=== PATIENT | female | born 1960 | race African-American/Black ===

== ENCOUNTER → 2020-01-26 10:26 | Outpatient (CLI) | payer BC, SELFPAY ==
--- NOTE | ~2020-01-26 | MR_ITS ---
EXAMINATION: MR knee RT wo con DATE: 01/26/2020 11:14 INDICATION: Chronic right knee pain TECHNIQUE: Magnetic resonance imaging (MRI) of the right knee was performed without intravenous contr ast. Sequences included coronal PD-weighted FSE, coronal PD-weighted FS FSE, sagittal T2-weighted FS E, sagittal PD-weighted FS FSE and axial PD weighted fat saturated FSE. COMPARISON: None. FINDINGS: Medial compartment: Complex tear at the posterior horn and posterior body of the medial meniscus with both a radial and l ongitudinal component. Partial-thickness cartilage loss with relatively smooth chondral surface along the medial tibial plateau and with chondral surface regularity and deeper fissuring along the weight bearing medial femoral condyle. There is a small central subchondral osteophyte at the central aspect of the posterior weightbearing medial femoral condyle. Small marginal osteophytes are present. Lateral compartment: There is lateral extrusion of the lateral meniscal body. Complex tear with macerated appearance to th e lateral meniscal body and anterior horn. Extensive cartilage loss throughout the lateral compartmen t which is full/near full-thickness across much of the lateral tibial plateau and along portions of t he anterior to central weightbearing medial femoral condyle. At both regions there is underlying suba rticular edema. Patellofemoral compartment: Partial-thickness chondral ulceration at the patellar apical ridge and extending to the immediately a djacent medial and lateral patellar facets with there is also some deep fissuring. Tiny focus of suba rticular edema at the central aspect of the medial patellar facet. Deep chondral fissure involving gr eater than 50% the cartilage thickness but without degenerative subarticular changes at the superomed ial aspect of the lateral trochlea. Less severe partial thickness fissuring at the inferior aspect of the trochlear groove. Ligaments and tendons: Anterior and posterior cruciate ligaments are normal. The medial collateral ligament and fibular laurence ateral ligament complex are normal. The extensor mechanism is normal. The visualized medial and later al hamstring tendons as well as the iliotibial band are normal. Fluid: Moderate right knee joint effusion with mild synovitis at the margins of the suprapatellar pouch and along the posterior aspect of Hoffa's fat pad. Additional mild synovitis at a small Mayberry's cyst. No loose osteochondral bodies identified. Osseous/other: Bone alignment is normal. No fracture or pathologic marrow replacing process. Additional mild osteoar thritis at the proximal tibiofibular articulation with prominent intraosseous ganglion cyst at the an teromedial aspect of the head of the fibula. IMPRESSION: 1. Complex tears of the medial and lateral menisci, more severe with macerated appearance at the late ral meniscus. 2. Moderate lateral compartment predominant tricompartmental osteoarthritis with regions of high-grad e chondromalacia in all 3 compartments, least severe in the medial compartment. 3. Likely reactive moderate sized right knee joint effusion and small Mayberry's cyst. 4. Mild osteoarthritis at the proximal tibiofibular articulation with likely degenerative cystic oliva ge at the head of the fibula. Reviewed, dictated and finalized at location A. EE [employer] IMPRESSION: 1. Complex tears of the medial and lateral menisci, more severe with macerated appearance at the lateral meniscus. 2. Moderate lateral compartment predominant tricompartmental osteoarthritis wit h regions of high-grade chondromalacia in all 3 compartments, least severe in t he medial compartment. 3. Likely reactive moderate sized right knee joint effusion and small Mayberry's c yst. 4. Mild osteoa
== END ==
PROVIDERS: PCP Internal Medicine; Visit Provider Orthopaedic Surgery
DX: S83.271A Complex tear of lateral meniscus, current injury, right knee, initial encounter (principal); S83.231A Complex tear of medial meniscus, current injury, right knee, initial encounter; X58.XXXA Exposure to other specified factors, initial encounter; M17.11 Unilateral primary osteoarthritis, right knee
CPT/HCPCS: 73721

== ENCOUNTER 2020-04-16 16:23 | Outpatient (CLI) | payer BC, SELFPAY ==
[2020-04-21 15:57] LABS: Reference Lab Test Result Positive
== END 2020-04-16 16:24 | disposition home or self-care (01) ==
PROVIDERS: PCP Internal Medicine; Visit Provider Internal Medicine
DX: U07.1 COVID-19 (principal)
CPT/HCPCS: 36415; 86769

== ENCOUNTER 2020-05-13 09:24 | Outpatient (RCR) | payer BC, SELFPAY ==
[2020-05-13 09:27] VITALS: BMI 28.8
[2020-05-13 09:35] VITALS: BMI 28.8
== END 2020-08-11 23:59 | disposition home or self-care (01) ==
LOC: ANHDMC 09:24
PROVIDERS: PCP Internal Medicine; Visit Provider Internal Medicine
DX: M06.00 Rheumatoid arthritis without rheumatoid factor, unspecified site (principal); Z71.3 Dietary counseling and surveillance
CPT/HCPCS: 97802

== ENCOUNTER 2020-05-13 11:51 | Outpatient (CLI) | payer BC, SELFPAY ==
--- NOTE | ~2020-05-13 | XR_ITS ---
EXAMINATION: XR chest 2V DATE: 05/13/2020 13:29 INDICATION: Hypertension. Preop. TECHNIQUE: Frontal and lateral views of the chest were obtained. COMPARISON: None. FINDINGS: Calcified right lung nodules and calcified right hilar lymph nodes are consistent with old granulomatous disease. No pleural effusion or pneumothorax. The heart size is normal. There are sutur e anchors in the humeral heads bilaterally. Surgical clips in the right upper quadrant are likely fro m cholecystectomy. IMPRESSION: 1. No acute cardiopulmonary disease. Reviewed, dictated and finalized at location A.
[2020-05-13 13:42] LABS: Basophils Percent Auto 0.9 % (0.2-1.2); Eosinophils Absolute Auto 0.1 K/mm3 (0-0.3); Hematocrit 35.7 % (37.0-47.0); Hemoglobin 11.4 g/dL (12.0-15.0); Immature Granulocyte Absolute 0.01 K/mm3 (0.00-0.031); Immature Granulocyte Percent A 0.2 % (0-0.5); Lymphocytes Absolute Auto 2.16 K/mm3 (0.9-3.2); Lymphocytes Percent Auto 48.5 % (18.3-44.2); Mean Corpuscular HGB Conc 31.9 g/dl (32-36); Mean Corpuscular Hemoglobin 31.1 pg (26-34); Mean Corpuscular Volume 97.3 fl (80-100); Mean Platelet Volume 10.6 fl (7.4-10.4); Monocytes Absolute Auto 0.3 K/mm3 (0.1-0.6); Monocytes Percent Auto 6.5 % (2.6-8.5); Neutrophils Absolute Auto 1.9 K/mm3 (1.3-6.7); Neutrophils Percent Auto 41.9 % (45.5-73.1); Platelet Count Result 286 k/mm3 (150-375); Red Blood Count 3.67 M/mm3 (4.2-5.4); Red Cell Distribution Width 12.2 % (11.5-14.5); Urine Cotinine NEGATIVE; White Blood Count 4.5 K/mm3 (4.5-10.0)
[2020-05-13 13:43] LABS: Hemoglobin A1C 4.8 % (<5.7)
[2020-05-13 13:44] LABS: Albumin Level 4.1 g/dL (3.5-5.1); Blood Urea Nitrogen 12 mg/dL (7-17); Calcium 9.1 mg/dL (8.4-10.2); Carbon Dioxide 33 mmol/L (22-30); Chloride 102 mmol/L (98-107); Estimated Glomerular Filt Rate > 60; Glucose 95 mg/dL (65-105); Potassium 3.8 mmol/L (3.4-5.0); Sodium 140 mmol/L (137-145)
[2020-05-13 13:45] LABS: Prothrombin Time 12.5 Seconds (11.1-14.7)
[2020-05-13 13:46] LABS: Add Urine Microscopic? YES; Appearance Urine Clear (Clear); Bilirubin Urine Negative (Negative); Blood Urine Negative (Negative); Color Urine Yellow (Yellow); Glucose Urine UA Negative (Negative); Ketones Urine Negative (Negative); Leukocyte Esterase Ur 1+ LEU/UL (Negative); Mucus Urine Rare /lpf; Nitrate Urine Negative (Negative); Partial Thromboplastin Time 33.7 SECONDS (22.3-36.8); Protein Urine Negative (Negative); RBC Urine 0-2 /hpf (0-2); Specific Grav Ur 1.021 (1.001-1.035); Squamous Epithelial Cell Urine Rare /hpf (Few); Urobilinogen Urine Negative mg/dL (<2.0)
== END 2020-05-13 11:52 | disposition home or self-care (01) ==
PROVIDERS: PCP Internal Medicine; Visit Provider Orthopaedic Surgery
DX: Z01.818 Encounter for other preprocedural examination (principal); M17.0 Bilateral primary osteoarthritis of knee; M06.9 Rheumatoid arthritis, unspecified; R61 Generalized hyperhidrosis; I10 Essential (primary) hypertension; R91.1 Solitary pulmonary nodule
CPT/HCPCS: 36415; 71046; 80048; 80307; 81001; 82040; 83036; 85025; 85610; 85730; 86850; 86900; 86901; 87081; 87086; 87088

== ENCOUNTER 2020-05-17 00:03 | Outpatient (CLI) | payer BC, SELFPAY ==
[2020-05-17 17:13] LABS: SARS-CoV-2 RNA PCR Negative
== END 2020-05-17 00:04 | disposition home or self-care (01) ==
LOC: ANHCOVIDDT 00:03
PROVIDERS: PCP Internal Medicine; Visit Provider Orthopaedic Surgery
DX: Z01.812 Encounter for preprocedural laboratory examination (principal); Z11.59 Encounter for screening for other viral diseases
CPT/HCPCS: 87635; C9803; U0003

== ENCOUNTER 2020-05-19 11:16 | Inpatient (IN) | payer BC, SELFPAY ==
[2020-05-13 12:16] VITALS: BMI 28.8
[2020-05-13 12:49] VITALS: BP 120/66; PULSE 70; RESP 18; TEMP 36.9; O2SAT 99
[2020-05-19] VITALS (14 sets, daily range): BP systolic 124–157; BP diastolic 62–85; PULSE 63–94; RESP 10–20; TEMP 36–36.5; O2SAT 95–100
--- NOTE | ~2020-05-19 | XR_ITS ---
EXAMINATION: XR knee RT 2V DATE: 05/19/2020 10:08 INDICATION: Postoperative evaluation following right total knee arthroplasty. TECHNIQUE: Anteroposterior and lateral views of the right knee were obtained. COMPARISON: 01/12/2020 FINDINGS: Right total knee arthroplasty without patellar resurfacing appears well seated and in near anatomic a lignment. No fractures identified. Skin caity and expected postoperative subcutaneous and intra-a rticular gas. IMPRESSION: 1. Right total knee arthroplasty, negative for postoperative purposes. Reviewed, dictated and finalized at location A.
--- NOTE | 2020-05-19 06:54 | WPDANESEPPF ---
Anes - Initial Pre Proc Eval Procedure: Operation Date: 05/19/20 07:30 Proposed Procedures p Right Total Knee Arthroplasty - Ubaldo Curran MD Date/Time: 05/19/20 06:54 Surgeon: Ubaldo Curran MD Pre Op Diagnosis: OA Right Knee Patient Data Age: 59 Gender: F Height: 1.68 m Weight: 80.9 kg Last Vital Signs Temp 36.9 C 05/13/20 12:49 Pulse 70 05/13/20 12:49 Resp 18 05/13/20 12:49 BP 120/66 05/13/20 12:49 Pulse Ox 99 05/13/20 12:49 Allergies Allergy/AdvReac Type Severity Reaction Status Date / Time morphine Allergy Unknown Itching Verified 05/13/20 12:05 Home Medications Medication Instructions Recorded Confirmed Type chlorthalidone 25 mg tablet 25 mg PO DAILY 12/17/19 05/13/20 History zolpidem 10 mg tablet 10 mg PO .at bedtime #30 tablet 01/09/20 05/13/20 Rx chlorhexidine gluconate 4 % 1 applic TOPICAL ONCE #237 ml 04/08/20 05/13/20 Rx topical liquid meloxicam 7.5 mg tablet 7.5 mg PO BID #180 tablet 04/23/20 05/13/20 Rx quetiapine 25 mg tablet 25 mg PO .at bedtime #90 tablet 04/23/20 05/13/20 Rx amlodipine 5 mg PO HS 05/13/20 05/13/20 History gabapentin 600 mg PO QAM 05/13/20 05/13/20 History gabapentin [Neurontin] 1,500 mg PO HS 05/13/20 05/13/20 History lamotrigine 150 mg HS 05/13/20 05/13/20 History trazodone 150 mg PO HS 05/13/20 05/13/20 History nitrofurantoin 100 mg PO Q12H 7 Days #14 cap 05/17/20 Rx monohydrate/macrocrystals 100 mg capsule Patient hx anesthesia problems: none Family hx anesthesia problems: none PMFSH Past Medical History Medical History (Updated 05/19/20 @ 07:07 by Rommel Walker MD) Arthritis Bipolar 1 disorder Diverticulosis of intestine, part unspecified, without perforation or abscess with bleeding Essential hypertension Neuropathy Primary osteoarthritis of both knees Rheumatoid arthritis Social History Social History Smoking status: Never smoker Alcohol intake: never Spiritual care concerns: No Anes - Eval Final PreProcedure Day of Procedure 05/19/20 06:54 Patient weight: overweight Heart: regular rate and rhythm Lungs: clear to auscultation and normal air movement Airway: Mallampati scale class II Neurological: alert and oriented Last oral intake: >/= 8 hours ASA classification: III Emergent: no Anesthetic plan: proceed Anesthesia type and monitoring: general LMA Informed Consent: The patient's anesthetic plan and its attendant risks and benefits were discussed with the patient/family/POA. Questions were solicited and answers provided to the satisfaction of the patient/family/POA.
[2020-05-19] MEDS: LACTATED RINGERS 1,000 ML 30 ML IV CONT ×2 (07:00→09:47)
[2020-05-19] MEDS: TRANEXAMIC ACID 1,000MG/ISO100 1,000 MG/100 ML BAG 200 MG IVPB (07:15)
[2020-05-19] MEDS: IBUPROFEN IV 800 MG/200 ML 800 MG/200 ML BAG 400 MG IVPB (07:30)
--- NOTE | 2020-05-19 07:31 | WPDHPUPDATE1 ---
History and Physical Update Update Date/Time: 05/19/20 07:31 History and Physical has been reviewed, including an updated exam of the patient. There are NO changes in the patient's condition. Risks, benefits, and alternatives have been discussed and questions answered. Patient agrees to proceed with procedure.
--- NOTE | 2020-05-19 07:33 | WPDANESPNB ---
Anes - Peripheral Nerve Block Date/Time: 05/19/20 07:33 I have discussed with the patient/family/POA the placement of a peripheral nerve block for post-operative pain management, including associated risks, benefits, complications, and side effects. Alternative methods of post-operative analgesia were detailed. Questions were solicited and answers provided to the satisfaction of the patient/family/POA. Time-Out: A pre-procedural Time-Out was completed immediately before starting the procedure and confirmed: Patient Identification, Site, Procedure, Patient Position and the Availability of Requisite Equipment. Clinical Indications: Acute post-operative pain management requested by the operative surgeon. Nerve Block Insertion Note Anes-nerve block: femoral (20cc) right Patient position: supine Skin prep: chlorhexidine Needle: 22 gauge, stimulating, insulated echogenic needle. Needle length: 80 mm Technique: ultrasound (in plane) Injectate: bupivacaine 0.5% with epi 5 mcg/ml (20cc) Observations: tolerated well Complications: none Procedure start time:: 725 Procedure end time:: 730
[2020-05-19] MEDS: ceFAZolin 2 GM/D5W 50 ML 2 GM/50 ML BAG IVPB ×3 (07:36→23:33)
[2020-05-19] MEDS: TRANEXAMIC ACID 1,000 MG/10 ML AMPUL 1000 MG IV PUSH (09:13)
--- NOTE | 2020-05-19 09:42 | PM.OP ---
Procedure Note - Brief Procedure Note - Brief Date of procedure: 05/19/20 Pre-op diagnosis: OA Right Knee Post-op diagnosis: same Procedure performed: R TKA Anesthesia: GETA Surgeon: Ubaldo Curran MD Estimated blood loss (mL): 100 Complications: No immediate complications Condition: stable Disposition: PACU
--- NOTE | 2020-05-19 10:32 | SUR.PHASEI ---
1028- pt medicated for pain right knee of 6. family member updated via phone at 1025.
[2020-05-19] MEDS: ONDANSETRON INJ 4 MG/2 ML VIAL IV PUSH ×2 (12:05→16:07)
[2020-05-19] MEDS: MORPHINE SULFATE 4 MG/ML INJ IV PUSH ×3 (12:06→21:53)
[2020-05-19] MEDS: NITROFURANTOIN MONOHYD MACROCR 100 MG CAP PO ×2 (12:20→22:01)
[2020-05-19] MEDS: SODIUM CHLORIDE 0.9% IV 1,000 ML 125 ML IV CONT (12:22)
--- NOTE | 2020-05-19 14:48 | OP_ITS ---
DATE OF PROCEDURE: 05/19/2020 PREOPERATIVE DIAGNOSIS: Right knee degenerative joint disease. POSTOPERATIVE DIAGNOSIS: Right knee degenerative joint disease. PROCEDURE: Right total knee arthroplasty. ANESTHESIA: General. COMPLICATIONS: None. INDICATIONS: This is a 59-year-old female who has severe knee pain due to advanced degenerative arthrosis of the right knee. She tried nonoperative treatments such as injections and therapy and pain medication. She was not successful. She was indicated for right total knee arthroplasty. DESCRIPTION OF PROCEDURE: The patient was taken to the operating room in stable condition and placed in the supine position. General anesthesia was induced and then the right lower extremity was prepped and draped sterilely from the toes to the thigh. A midline skin incision was made. Medial parapatellar arthrotomy was made. There was arthrosis in all 3 compartments, minimal in the patellofemoral compartment. IM landon was placed in the femur. A distal femoral cut was made at 5 degrees of valgus with removing approximately 9 mm of bone from the high side. Next, the knee was sized to 62.5 and a cutting block was placed in alignment with Whitesides line and the transepicondylar axis and anterior, posterior, and chamfer cuts were made to the femur. IM landon was placed in the tibia and a transtibial cut was made removing approximately 10 mm of bone from the high side of the tibia. The tibia was planed to a smooth surface. A 67 tibial trial was placed in line with the 1/3rd medial aspect of the tibial tubercle. The femoral trial was placed and then ultimately a 12 poly trial was placed. The knee came out to full extension. There was good tracking in the patella without any tilt. There was good stability in varus valgus stress in both flexion and extension. There was no excessive rollback in flexion, and the cuts were all flushed with the trial implants. The trial was removed and then a Biomet tibial component measuring 67 and a femoral component measuring 62.5 were both press-fitted in the tibia and the femur respectively and then a 12 poly CR-type component was locked into place. The knee came out to full extension. There was good patellar tracking without any tilt. There was good stability in varus-valgus stress in both flexion extension, and there was no excessive rollback in flexion. The tourniquet was deflated. The bleeders were cauterized. Sterile Betadine and sterile water were used to wash the knee out for approximately 3 minutes. The fascial layer was approximated with #1 Vicryl suture, subcutaneous tissues with 2-0 Vicryl and the skin was approximated with caity. Wound was washed, placed sterile dressing. The patient was extubated, sent to recovery. Jorje I MT: Brandin
--- NOTE | 2020-05-19 15:25 | PM.IMCN ---
Assessment and Plan Assessment and plan (1) History of total knee arthroplasty: Code(s): Z96.659 - Presence of unspecified artificial knee joint Status: Acute Assessment and Plan: Patient underwent a right total knee arthroplasty today by Dr. Curran. Patient is 8/10 pain at this time to her right knee. Pain management per Dr. Curran. Discharge planning per Dr. Curran. Post-op care per Dr. Curran. DVT Prophylaxis per Dr. Curran Continue monitoring the patient's symptoms. (2) Essential hypertension: Code(s): I10 - Essential (primary) hypertension Status: Acute Assessment and Plan: Blood pressures with slightly elevated since her surgery at 150/60s. Will continue her home blood pressure medications in the morning, amlodipine and chlorthalidone. Continue monitoring. (3) Bipolar 1 disorder: Code(s): F31.9 - Bipolar disorder, unspecified Status: Acute Assessment and Plan: Continue her home medications, lamotrigine, quetiapine, trazodone, zolpidem (4) Neuropathy: Code(s): G62.9 - Polyneuropathy, unspecified Status: Acute Assessment and Plan: She reports having neuropathy but is located to her right hip which she states is from a pinched sciatic nerve. Will continue her gabapentin for this. She is not having back pain at this time. (5) Rheumatoid arthritis: Code(s): M06.9 - Rheumatoid arthritis, unspecified Status: Acute Assessment and Plan: States she does not have Rh factor but all of her other symptoms are associated with rheumatoid arthritis and she was the middle of getting this further worked up with a specialist and her primary prior to COVID. Will have her follow-up with her primary care provider after discharge for further evaluation and continue her home meds. HPI Data of Consult Consult date: 05/19/20 Requesting Physician: Ubaldo Curran MD Primary Care Provider: Aris Solomon DO Consult Narrative Narrative: Susan Chiu is a 59 year old female with history of bipolar, hypertension, rheumatoid arthritis, who was admitted after having outpatient right total knee arthroplasty by Dr. Curran. The patient states for years she has had arthritis of her bilateral knees and she has been having cortisone injections without much relief recently. She states Dr. Curran ordered knee MRI recently which showed she has complex tears of the medial and lateral meniscus and more severe with macerated appearance of the lateral meniscus. She decided that she would rather have a total knee arthroplasty since she has had meniscus surgery in the past. The patient had increased pain with walking and intermittent swelling to her knees. Since her surgery she is in 8/10 pain to her right knee. She has increased pain with movement it was sitting up in the chair at this time. The patient states she was called couple days ago and told she has urinary tract infection was started on oral antibiotics. She is not with the name of these antibiotics but states she has been having symptoms of frequent urination and the feeling that she is not completely emptying her bladder when she urinates. I reviewed her urine culture which came back negative for a UTI and showed multiple organisms all less than 10,000. She denies any chest pain, shortness of breath, cough, fever, chills, nausea, vomiting, abdominal pain, leg swelling, calf pain, headache, lightheadedness, dizziness or any other symptoms at this time. Review of Systems Review of Systems: All systems reviewed & are unremarkable except as noted in HPI and below PMFSH Past Medical History Medical History (Updated 05/19/20 @ 16:07 by Lisa Vail PA-C) Art
[2020-05-19] MEDS: CELECOXIB 200 MG CAPSULE PO (16:06)
[2020-05-19 18:10] LABS: Add Urine Microscopic? YES; Appearance Urine Clear (Clear); Bilirubin Urine Negative (Negative); Blood Urine Negative (Negative); Color Urine Straw (Yellow); Glucose Urine UA Negative (Negative); Ketones Urine Negative (Negative); Leukocyte Esterase Ur Trace LEU/UL (Negative); Mucus Urine Rare /lpf; Nitrate Urine Negative (Negative); Protein Urine Negative (Negative); RBC Urine 0-2 /hpf (0-2); Specific Grav Ur 1.014 (1.001-1.035); Urobilinogen Urine Negative mg/dL (<2.0)
[2020-05-19] MEDS: DOCUSATE SODIUM 100 MG CAPSULE PO (21:59)
[2020-05-19] MEDS: GABAPENTIN 300 MG CAPSULE 1500 MG PO (21:59)
[2020-05-19] MEDS: FAMOTIDINE 20 MG TABLET PO (21:59)
[2020-05-19] MEDS: AMLODIPINE BESYLATE 5 MG TABLET PO (21:59)
[2020-05-19] MEDS: lamoTRIgine 100 MG TABLET PO (22:00)
[2020-05-19] MEDS: lamoTRIgine 25 MG TABLET 50 MG PO (22:00)
[2020-05-19] MEDS: QUEtiapine FUMARATE 25 MG TABLET PO (22:01)
[2020-05-19] MEDS: TRAZODONE HCL 50 MG TABLET 150 MG PO (22:01)
[2020-05-20 01:01] VITALS: BP 108/58; PULSE 88; RESP 16; TEMP 36.9; O2SAT 95
[2020-05-20 05:01] VITALS: BP 98/60; PULSE 77; RESP 16; TEMP 36.9; O2SAT 96
[2020-05-20 06:23] LABS: Basophils Percent Auto 0.3 % (0.2-1.2); Eosinophils Percent Auto 0.2 % (0-4.4); Hematocrit 27.9 % (37.0-47.0); Immature Granulocyte Absolute 0.02 K/mm3 (0.00-0.031); Immature Granulocyte Percent A 0.3 % (0-0.5); Lymphocytes Absolute Auto 1.99 K/mm3 (0.9-3.2); Lymphocytes Percent Auto 30.2 % (18.3-44.2); Mean Corpuscular HGB Conc 32.3 g/dl (32-36); Mean Corpuscular Volume 96.2 fl (80-100); Mean Platelet Volume 10.3 fl (7.4-10.4); Monocytes Absolute Auto 0.9 K/mm3 (0.1-0.6); Monocytes Percent Auto 12.9 % (2.6-8.5); Neutrophils Absolute Auto 3.7 K/mm3 (1.3-6.7); Neutrophils Percent Auto 56.1 % (45.5-73.1); Platelet Count Result 213 k/mm3 (150-375); Red Cell Distribution Width 12.1 % (11.5-14.5); White Blood Count 6.6 K/mm3 (4.5-10.0)
[2020-05-20] MEDS: ceFAZolin 2 GM/D5W 50 ML 2 GM/50 ML BAG IVPB (06:33)
[2020-05-20 06:37] LABS: Blood Urea Nitrogen 10 mg/dL (7-17); Calcium 7.9 mg/dL (8.4-10.2); Carbon Dioxide 34 mmol/L (22-30); Chloride 102 mmol/L (98-107); Estimated CRCL calculation 82 ml/min; Estimated Glomerular Filt Rate > 60; Glucose 130 mg/dL (65-105); Potassium 3.3 mmol/L (3.4-5.0); Sodium 136 mmol/L (137-145)
[2020-05-20] MEDS: MORPHINE SULFATE 4 MG/ML INJ IV PUSH ×2 (07:04→08:48)
[2020-05-20 08:00] VITALS: PULSE 64; RESP 16; O2SAT 98
[2020-05-20] MEDS: NITROFURANTOIN MONOHYD MACROCR 100 MG CAP PO (08:26)
[2020-05-20] MEDS: lamoTRIgine 25 MG TABLET 50 MG PO (08:26)
[2020-05-20] MEDS: CHLORTHALIDONE 25 MG TABLET PO (08:26)
[2020-05-20] MEDS: lamoTRIgine 100 MG TABLET PO (08:26)
[2020-05-20] MEDS: DOCUSATE SODIUM 100 MG CAPSULE PO (08:27)
[2020-05-20] MEDS: CELECOXIB 200 MG CAPSULE PO ×2 (08:27→16:49)
[2020-05-20] MEDS: GABAPENTIN 300 MG CAPSULE 600 MG PO (08:27)
[2020-05-20] MEDS: FAMOTIDINE 20 MG TABLET PO (08:27)
[2020-05-20] MEDS: DIAZEPAM 5 MG TABLET PO (08:43)
[2020-05-20] MEDS: ONDANSETRON INJ 4 MG/2 ML VIAL IV PUSH (08:48)
--- NOTE | 2020-05-20 08:56 | PM.PNORT ---
Progress Note: A&P Assessment and Plan (1) History of total knee arthroplasty: Qualifiers: Laterality: right Qualified Code(s): Z96.651 - Presence of right artificial knee joint Code(s): Z96.659 - Presence of unspecified artificial knee joint Status: Acute Assessment and Plan: POD #1: RIGHT TKA Continue PT/OT. WBAT. Walker. Fall Risk. Continue DVT prophylaxis with Aspirin. SCDs. Incentive Spirometry. Continue pain control. Ice. No pillows under knee. Monitor dressing. Change prior to discharge. Dispo: Home with Home Health pending progress with PT/OT. Subjective Subjective Date/Time Seen: 05/20/20 08:56 Post Op day: 1 Principal diagnosis: Right Knee DJD Interval history: POD #1: RIght TKA Patient doing well. Some difficulty with pain control. Awaiting PT/OT. Requesting to be discharged home today if she progresses well with PT. Review of Systems Review of Systems: All systems reviewed & are unremarkable except as noted in HPI and below Constitutional: Constitutional: Denies chills, Denies difficulty sleeping, Denies fever(s) and Denies headache(s) ENT: Denies headache(s) Cardiovascular: Cardiovascular: Denies chest pain, Denies diaphoresis, Denies palpitations and Denies dyspnea Respiratory: Respiratory: Denies dyspnea Gastrointestinal: Gastrointestinal: Denies abdominal pain, Denies constipation, Denies nausea and Denies vomiting Comments: +flatus Genitourinary: Genitourinary: Reports nocturia and Denies dysuria Musculoskeletal: Musculoskeletal: Reports arthralgias (Right Knee ) and Reports joint swelling (Right Knee ) Neurologic: Denies headache(s) Endocrine: Endocrine: Denies palpitations Exam Const: General: comfortable and no acute distress Resp: Effort & Inspection: normal respiratory effort Cardio: Rate: regular rate Rhythm: regular rhythm GI: GI Palp: Yes Soft to palpation, No Tenderness to palpation present (GI) and No Guarding due to palpation present (GI) Skin: Wounds: wounds noted Other: Incision c/d/i. No surrounding redness/warmth. No hematoma. Mild ecchymosis. No wound dehiscence Neuro: Cognition (Neuro): normal cognition Other: NV intact aside from block. Moves toes. Sensation intact to light touch. +ankle dorsiflexion/plantarflexion. Extrem: Right upper extremity: normal to inspection, full ROM and normal capillary refill Left upper extremity: normal to inspection, full ROM and normal capillary refill Right lower extremity: normal to inspection, full ROM (ROM limited due to recent surgical intervention ), knee Details: tenderness (diffuse) and swelling (diffuse, mild ), lower leg (Negative Tomy's Sign ) Details: normal to inspection, ankle (+ankle dorsiflexion/plantarflexion. ) and foot Details: normal capillary refill, normal to inspection, vascular exam Details: dorsalis pedis pulse present and motor-sensory exam Details: two point discrimination normal and light-touch normal; no ecchymosis Left lower extremity: normal to inspection Psych: Mental Status: mental status grossly normal Objective Data Vital Signs Vital Signs: Vital Signs - 24 hr 05/19/20 09:47 05/19/20 10:00 05/19/20 10:12 Temperature 36.3 C L Pulse Rate 94 83 92 Respiratory Rate 10 L 10 L 11 L Blood Pressure 147/80 H 130/66 130/66 Pulse Oximetry 100 100 100 05/19/20 10:23 05/19/20 10:36 05/19/20 10:48 Temperature Pulse Rate 91 69 65 Respiratory Rate 10 L 10 L 10 L Blood Pressure 139/85 136/80 124/68 Pulse Oximetry 95 95 95 05/19/20 11:10 05/19/20 11:25 05/19/20 11:30 Temperature 36.4 C 36.5 C Pulse Rate 80 65 80 Respiratory Rate 18 18 18 Blood Pressure 157/71 H 133/77 Pulse Oximetry 97 100 97 05/19/20 12:01 05/19/20 12:55 05/19/20 16:55 Temperature 36.2 C L 36.0 C L 36.2 C L Pulse Rate 63 66 63 Respiratory Rate 20 18 18 Blood Pressure 154/67 H 151/70 H 147/73 H Pulse Oximetry 100 100 99 05/19/20 21:01 05/20/20 01:01 05/20/20 0
--- NOTE | 2020-05-20 09:44 | P.PNAN_ITS ---
Anes - Prog Note Post-Op Date/Time: 05/20/20 09:44 Cardiovascular status: normal Respiratory status: normal Airway patency: baseline Mental status: baseline Post-Op hydration status: normal Vital Signs: Last Vital Signs Temp 36.9 C 05/20/20 05:01 Pulse 77 05/20/20 05:01 Resp 16 05/20/20 05:01 BP 98/60 L 05/20/20 05:01 Pulse Ox 96 05/20/20 05:01 I/O: Intake & Output 05/19/20 05/20/20 05/20/20 23:59 07:59 15:59 Intake Total 1640 550 480 Output Total 400 Balance 1240 550 480 Laboratory Tests 05/20/20 06:14 05/20/20 06:14 05/19/20 05/20/20 05/20/20 17:54 06:14 06:14 WBC 6.6 RBC 2.90 L Hgb 9.0 L Hct 27.9 L MCV 96.2 MCH 31.0 MCHC 32.3 RDW 12.1 Plt Count 213 MPV 10.3 Immature Gran % (Auto) 0.3 Neut % (Auto) 56.1 Lymph % (Auto) 30.2 [place] % (Auto) 12.9 H Eos % (Auto) 0.2 Baso % (Auto) 0.3 Lymph # (Auto) 1.99 [place] # (Auto) 0.9 H Eos # (Auto) 0.0 Baso # (Auto) 0.0 Abs Immat Gran (auto) 0.02 Absolute Neuts (auto) 3.7 Absolute Nucleated RBC 0.0 Nucleated RBC % 0.0 Sodium 136 L Potassium 3.3 L Chloride 102 Carbon Dioxide 34 H BUN 10 Creatinine 0.70 Estim Creat Clear Calc 82 Estimated GFR > 60 Glucose 130 H Calcium 7.9 L Urine Color Straw Urine Appearance Clear Urine pH 6.0 Ur Specific [place] 1.014 Urine Protein Negative Urine Glucose (UA) Negative Urine Ketones Negative Ur Blood (Man) Negative Urine Nitrate Negative Urine Bilirubin Negative Urine Urobilinogen Negative Leukocyte Esterase Rfl Trace H Urine RBC 0-2 Urine WBC 4-6 H Urine Mucus Rare Post-procedural complaints: none Patient Feedback: Patient satisfied with anesthetic care.
[2020-05-20 10:00] VITALS: BP 116/60; PULSE 64; RESP 16; TEMP 36.4; O2SAT 98
[2020-05-20] MEDS: ASPIRIN 325 MG ENTERIC TABLET 650 MG PO (10:44)
[2020-05-20 14:00] VITALS: BP 102/61; PULSE 87; RESP 16; TEMP 36.4; O2SAT 98
--- NOTE | 2020-05-20 15:10 | PM.IMPN ---
Progress Note: A&P Assessment and Plan (1) History of total knee arthroplasty: Qualifiers: Laterality: right Qualified Code(s): Z96.651 - Presence of right artificial knee joint Code(s): Z96.659 - Presence of unspecified artificial knee joint Status: Acute Assessment and Plan: Patient underwent a right total knee arthroplasty today by Dr. Curran. Patient's pain is well controlled at this time. Pain management per Dr. Curran. Discharge planning per Dr. Curran. Post-op care per Dr. Curran. DVT Prophylaxis per Dr. Curran Continue monitoring the patient's symptoms. She is stable for discharge from a medical standpoint (2) Essential hypertension: Code(s): I10 - Essential (primary) hypertension Status: Acute Assessment and Plan: Blood pressures today have been stable at 100 to 110 systolic. Will continue her home blood pressure medications in the morning, amlodipine and chlorthalidone. Continue monitoring. (3) Bipolar 1 disorder: Code(s): F31.9 - Bipolar disorder, unspecified Status: Acute Assessment and Plan: Continue her home medications, lamotrigine, quetiapine, trazodone, zolpidem (4) Neuropathy: Code(s): G62.9 - Polyneuropathy, unspecified Status: Acute Assessment and Plan: She reports having neuropathy but is located to her right hip which she states is from a pinched sciatic nerve. Will continue her gabapentin for this. She is not having back pain at this time. (5) Rheumatoid arthritis: Code(s): M06.9 - Rheumatoid arthritis, unspecified Status: Acute Assessment and Plan: States she does not have Rh factor but all of her other symptoms are associated with rheumatoid arthritis and she was the middle of getting this further worked up with a specialist and her primary prior to COVID. Will have her follow-up with her primary care provider after discharge for further evaluation and continue her home meds. (6) Frequent urination: Code(s): R35.0 - Frequency of micturition Status: Acute Assessment and Plan: The patient stated that she had been having frequent urination prior to coming in for her surgery. Her urinalysis on 05/13/2020 showed 1+ leukocyte esterase and 10-15 wbc's. She states she was started on oral antibiotics as an outpatient at this time but cannot remember the name. Her urine culture showed multiple organisms which is most likely a contamination. I recheck her urinalysis yesterday and it still showed trace leukocytosis and WBC 4-6. She denies any urinary symptoms at this time. Will have her follow-up her primary care provider if she continues have symptoms and I will not give any antibiotics at this time. Time Spent With Patient Time with patient: 25 - 35 minutes Subjective Date/time seen: 05/20/20 15:10 Interval history: POD #1: RIght TKA Patient states she is doing well and walked down the tovar and stairs earlier without any issues. She is rated be discharged home today if possible. She denies any fevers, chills, chest pain, shortness of breath, cough, nausea, vomiting, abdominal pain, dysuria, frequent urination or any other symptoms at this time. Review of Systems Review of Systems: All systems reviewed & are unremarkable except as noted in HPI and below Exam Narrative: Exam Narrative: General: 59-year-old woman laying flat in bed sleeping. Easily arousable but falls back asleep after answering my questions. Appears comfortable and in no acute distress. Skin: No jaundice or cyanosis. Good skin turgor. Neck: Full range of motion. Supple. Respiratory: Lungs are clear to auscultation bilat
[2020-05-20] MEDS: POTASSIUM CHLORIDE 20 MEQ TABLET 40 MEQ PO (15:32)
--- NOTE | 2020-07-02 08:49 | PM.DS ---
DS: Admitting Diagnosis Admitting Diagnosis Admitting Diagnosis: Right TKA DS: Discharge Diagnosis Discharge Diagnosis (1) History of total knee arthroplasty: Qualifiers: Laterality: right Qualified Code(s): Z96.651 - Presence of right artificial knee joint Code(s): Z96.659 - Presence of unspecified artificial knee joint Status: Acute Assessment and Plan: POD #1: RIGHT TKA Continue PT/OT. WBAT. Walker. Fall Risk. Continue DVT prophylaxis with Aspirin. SCDs. Incentive Spirometry. Continue pain control. Ice. No pillows under knee. Monitor dressing. Change prior to discharge. Dispo: Home with Home Health pending progress with PT/OT. DS: Summary Hospital Course Reason for hospitalization: Right TKA Hospital Course: 60 year old female admitted s/p right TKA for postoperative medical management and pain control, PT/OT. Patient progressed well with PT/OT. Pain well controlled. Discharged home with home health. Status at Discharge Functional status at discharge: uses cane/walker Overall status at discharge: patient is progressing back to baseline Time Spent with Patient Time attestation: Total time spent providing and/or coordinating discharge services: Exam Const: General: comfortable and no acute distress Resp: Effort & Inspection: normal respiratory effort Cardio: Rate: regular rate Rhythm: regular rhythm GI: GI Palp: Yes Soft to palpation, No Tenderness to palpation present (GI) and No Guarding due to palpation present (GI) Skin: Wounds: wounds noted Other: Incision c/d/i. No surrounding redness/warmth. No hematoma. Mild ecchymosis. No wound dehiscence Neuro: Cognition (Neuro): normal cognition Other: NV intact aside from block. Moves toes. Sensation intact to light touch. +ankle dorsiflexion/plantarflexion. Extrem: Right upper extremity: normal to inspection, full ROM and normal capillary refill Left upper extremity: normal to inspection, full ROM and normal capillary refill Right lower extremity: normal to inspection, full ROM (ROM limited due to recent surgical intervention ), knee, lower leg (Negative Tomy's Sign ), ankle (+ankle dorsiflexion/plantarflexion. ) and foot Left lower extremity: normal to inspection Psych: Mental Status: mental status grossly normal Discharge Plan Discharge Attending physician on discharge: Ubaldo Curran Consulting providers: Lisa Vail ; Nato Durand ; Sophia Cavazos ; David Basurto Discharging Clinician: Ubaldo Curran Anticipated Discharge Date/Time: 05/20/20 17:00 Patient Disposition: Home Health Service Activity: may shower and no driving Diet: as tolerated Wound Care Instructions: keep dressing dry Discharge Instructions: Post Op Total Knee Replacement Instructions Dr. Ubaldo Curran ?Your dressing will be changed today prior to your discharge. You will be sent home with one additional dressing to be changed in 5 days by the home health RN. Your caity will be removed on the 14th day after surgery and steri-strips will be placed. ?You may shower with your dressing but do not submerge in a bath tub. ?Do not drive or operate machinery until you are released by Dr. Curran. ?Do not walk without a walker for any reason until you are released by Dr. Curran. ?Continue to use your ice machine. Please use a towel or pillow case to protect your skin before applying your ice machine. ?Do NOT place a pillow under your knee. You may use a pillow from the calf down if needed. ?You may begin use of your CPM machine at home if you have been given one pre-operatively. DO NOT USE WHILE YOU ARE SLEEPING. ?Your follow up appointment is indicated in your discharge instructions. ?Your medications have been sent to your pharmacy. ?Please contact our office with any questions/concerns regarding your knee at [phone]. [facility] has been arranged. [facility] can be reached at [phone].
== END 2020-05-20 19:24 | disposition home health service (06) | DRG 470 ==
LOC: ANH2MED 11:18
PROVIDERS: Physician Assistant; Admitting Provider Orthopaedic Surgery; PCP Internal Medicine; Visit Provider Orthopaedic Surgery
PROC: 0SRC0JA Replacement of Right Knee Joint with Synthetic Substitute, Uncemented, Open Approach (ICD-10-PCS; CPT 27447; principal; 2020-05-19 07:30)
DX: M17.11 Unilateral primary osteoarthritis, right knee (principal); M06.9 Rheumatoid arthritis, unspecified; F31.9 Bipolar disorder, unspecified; G89.18 Other acute postprocedural pain; R35.0 Frequency of micturition; I10 Essential (primary) hypertension; G62.9 Polyneuropathy, unspecified; Z79.899 Other long term (current) drug therapy; Z88.5 Allergy status to narcotic agent
CPT/HCPCS: 36415; 73560; 80048; 81001; 85025; 97110; 97116; 97161; 97165; 97530; A9270; C1713; C1776; J0131; J0171; J0690; J1100; J1170; J1200; J1741; J2250; J2270; J2405; J2704; J2795; J3010; J7030; J7120